=== PATIENT | female | born 1990 | race Caucasian/White ===

== ENCOUNTER 2017-07-01 18:33 | Emergency (ER) | payer BC, MEDICAID | END 2017-07-01 21:51 | disposition home or self-care (01) | LOC: D.ER 18:33 | DX: S29.012A Strain of muscle and tendon of back wall of thorax, initial encounter (principal); X58.XXXA Exposure to other specified factors, initial encounter; Y93.89 Activity, other specified; Y92.89 Other specified places as the place of occurrence of the external cause; M25.551 Pain in right hip; M54.9 Dorsalgia, unspecified; M79.605 Pain in left leg; M79.604 Pain in right leg ==

== ENCOUNTER → 2017-07-08 14:30 | Outpatient (CLI) | payer MEDICAID | END | disposition home or self-care (01) | LOC: D.MRI 14:30 | DX: M54.5 Low back pain (principal) ==